=== PATIENT | female | born 1940 | race Caucasian/White ===

== ENCOUNTER 2019-07-10 10:18 | Outpatient (CLI) | payer OTHER, MEDICARE ==
[2019-07-10] MEDS ORDERED: [UNRECOGNIZED DRUG - REMARK] (11:13)
[2019-07-10 11:41] LABS: BASOPHILS # (AUTO) 0.05 x10^3/uL (0-0.1); BASOPHILS % (AUTO) 1 % (0-1); EOSINOPHILS # (AUTO) 0.19 x10^3/uL (0-0.4); EOSINOPHILS % (AUTO) 2 % (1-7); LYMPHOCYTES # (AUTO) 1.78 x10^3/uL (1-3.4); LYMPHOCYTES % (AUTO) 20 % (22-44); MD NO; MEAN CORPUSCULAR HEMOGLOBIN 29.5 pg (27.0-34.8); MEAN CORPUSCULAR HGB CONC 32.6 g/dL (32.4-35.8); MEAN CORPUSCULAR VOLUME 90.5 fL (80-100); MEAN PLATELET VOLUME 8.4 fL (7.4-10.4); MONOCYTES # (AUTO) 0.61 x10^3/uL (0.2-0.8); MONOCYTES % (AUTO) 7 % (2-9); NEUTROPHILS # (AUTO) 6.12 x10^3/uL (1.8-6.8); NEUTROPHILS % (AUTO) 70 % (42-75); PLATELET COUNT 300 x10^3/uL (130-400); RED CELL DISTRIBUTION WIDTH 19.3 % (9.6-15.2)
[2019-07-10 11:48] LABS: INTERNATIONAL NORMALIZED RATIO 0.94 (0.93-1.1); PROTHROMBIN TIME 9.9 Seconds (9.6-11.5)
[2019-07-10 11:52] LABS: ALBUMIN 3.6 g/dL (3.4-5.0); ANION GAP 4 mmol/L (5-15); CALCIUM 9.2 mg/dL (8.5-10.1); CHLORIDE 108 mmol/L (98-107)
[2019-07-10 11:55] LABS: ALANINE AMINOTRANSFERASE 29 U/L (12-78); ALKALINE PHOSPHATASE 68 U/L (45-117); BILIRUBIN,TOTAL 0.5 mg/dL (0.2-1.0); CREATININE 0.92 mg/dL (0.55-1.02); TOTAL PROTEIN 7.8 g/dL (6.4-8.2)
[2019-07-10 13:07] LABS: MICROSCOPIC NOT IND
[2019-07-10 13:12] LABS: CULTURE INDICATED? NO
== END 2019-07-10 23:59 | disposition home or self-care (01) ==
LOC: STAR 10:18
PROVIDERS: ATTEND Neurological Surgery
DX: Z01.818 Encounter for other preprocedural examination (principal); M54.16 Radiculopathy, lumbar region; M43.16 Spondylolisthesis, lumbar region; M54.5 Low back pain; Z88.6 Allergy status to analgesic agent; Z91.040 Latex allergy status; Z87.891 Personal history of nicotine dependence
CPT/HCPCS: 36415; 71046; 80053; 81003; 85025; 85610; 85730; 93005

== ENCOUNTER 2019-07-24 05:35 | Inpatient (IN) | payer OTHER, MEDICARE ==
[~2019-07-24] VITALS: Ht 172.7 cm; Wt 101.7 kg
[~2019-07-24 05:35] MED LIST: [UNRECOGNIZED DRUG - REMARK]
[2019-07-24] MEDS ORDERED: HEPARIN 1,000 UNITS/ML, 30ML ONE (06:03)
[2019-07-24] MEDS ORDERED: EPINEPHRINE 1 MG/ML, 1ML ONE (06:03)
[2019-07-24] MEDS ORDERED: THROMBIN (RECOMBINANT) 5,000 UNIT VIAL TP ONE (06:03)
[2019-07-24] MEDS ORDERED: BUPIVACAINE/PF 0.5% ONE (06:03)
[2019-07-24] MEDS ORDERED: BACITRACIN 50,000 UNIT ONE (06:04)
[2019-07-24] MEDS ORDERED: VANCOMYCIN 1,000 MG ONE (06:05)
[2019-07-24] MEDS ORDERED: LACTATED RINGERS 1,000 ML IV SCH (06:21)
[2019-07-24] MEDS ORDERED: carvedilol PO (06:25)
[2019-07-24] MEDS ORDERED: CLOP75TA PO (06:25)
[2019-07-24] MEDS ORDERED: PREG100C PO (06:25)
[2019-07-24] MEDS ORDERED: METF500T17 PO (06:25)
[2019-07-24] MEDS ORDERED: ATOR20TA37 PO (06:25)
[2019-07-24] MEDS ORDERED: TRAM50TA2 PO (06:25)
[2019-07-24] MEDS ORDERED: LIDOCAINE-MPF 1%, 2ML INFIL ONE (06:30)
[2019-07-24] MEDS ORDERED: FENTANYL PF 250 MCG/5ML ONE (06:53)
[2019-07-24] MEDS ORDERED: METOPROLOL 1 MG/ML, 5ML ONE (07:04)
[2019-07-24] MEDS ORDERED: ACETAMINOPHEN 325 MG TABLET PO PRN (08:30)
[2019-07-24] MEDS ORDERED: HYDROmorphone 2 MG/ML, 1ML IVPush PRN ×2 (08:30→11:00)
[2019-07-24] MEDS ORDERED: ALBUTEROL SULFATE 2.5 MG/3 ML NPPB PRN (08:30)
[2019-07-24] MEDS ORDERED: FENTANYL PF 100 MCG/2ML IV PRN (08:30)
[2019-07-24] MEDS ORDERED: hydrALAzine 20 MG/ML, 1ML IV PRN (08:30)
[2019-07-24] MEDS ORDERED: OXYcodone 5 MG/5 ML ORAL.SOL UDC PO PRN (08:30)
[2019-07-24] MEDS ORDERED: LABETALOL 5MG/ML, 20ML IV PRN (08:30)
[2019-07-24] MEDS ORDERED: PROMETHAZINE 25 MG/ML, 1ML IV PRN (08:30)
[2019-07-24] MEDS ORDERED: ROCURONIUM 10MG/ML,5ML ONE (08:32)
[2019-07-24] MEDS ORDERED: CEFAZOLIN 1,000 MG ONE (08:32)
[2019-07-24] MEDS ORDERED: NEOSTIGMINE 1 MG/ML, 10ML ONE (08:32)
[2019-07-24] MEDS ORDERED: DEXAMETHASONE 4 MG/ML, 1ML ONE (08:32)
[2019-07-24] MEDS ORDERED: SUGAMMADEX 200 MG/2 ML IVPush ONE (08:32)
[2019-07-24] MEDS ORDERED: PROPOFOL 10 MG/ML, 20ML ONE (08:32)
[2019-07-24] MEDS ORDERED: ONDANSETRON 2MG/ML, 2ML ONE (08:32)
[2019-07-24] MEDS ORDERED: GLYCOPYRROLATE 0.2MG/1ML, 5ML ONE (08:32)
[2019-07-24] MEDS ORDERED: SUCCINYLCHOLINE 20 MG/ML, 10ML ONE (08:32)
[2019-07-24] MEDS ORDERED: FENTANYL PF 100 MCG/2ML ONE (09:23)
[2019-07-24] MEDS ORDERED: OXYcodone 5 MG/5 ML ORAL.SOL UDC ONE (09:23)
[2019-07-24] MEDS ORDERED: METHOCARBAMOL 1000MG/10 ML IV ONE (09:30)
[2019-07-24] MEDS ORDERED: METHOCARBAMOL 1,000 MG in DEXTROSE 5% 100 ML IV ONE (10:00)
[2019-07-24] MEDS ORDERED: DIPHENHYDRAMINE 50 MG/ML, 1ML IVPush PRN (11:00)
[2019-07-24] MEDS ORDERED: BISACODYL 10 MG SUPP PR PRN (11:00)
[2019-07-24] MEDS ORDERED: HYDROcodone/APAP 10/325 MG TABLET PO PRN (11:00)
[2019-07-24] MEDS ORDERED: MAGNESIUM HYDROXIDE 8%, 30ML UDC PO PRN (11:00)
[2019-07-24] MEDS ORDERED: PROMETHAZINE 25 MG/ML, 1ML IM PRN (11:00)
[2019-07-24] MEDS ORDERED: LORazepam 1MG TABLET PO PRN (11:00)
[2019-07-24] MEDS ORDERED: ONDANSETRON 2MG/ML, 2ML IV PRN (11:00)
[2019-07-24] MEDS: PREGABALIN 100 MG CAPSULE PO SCH ×3 (11:47→20:45)
[2019-07-24] MEDS: NS + 20MEQ KCL 1,000 ML IV SCH (12:13)
[2019-07-24 14:00] VITALS: BP 120/67
[2019-07-24] MEDS: CEFAZOLIN PMX 1GM/50ML 50 ML IVPB SCH (16:45)
[2019-07-24] MEDS: metFORMIN 500 MG TABLET PO SCH (16:45)
[2019-07-24] MEDS: CARVEDILOL 6.25 MG TABLET PO SCH (16:46)
[2019-07-24] MEDS: METHOCARBAMOL 750 MG TABLET PO SCH (16:47)
[2019-07-24] MEDS: HYDROcodone/APAP 5/325 TABLET PO PRN (17:06)
[2019-07-24] MEDS: INSULIN REGULAR 100 UNITS/ML, 3ML VIAL SQ-INSULIN SCH ×3 (18:31→23:23)
[2019-07-24 19:06] VITALS: BP 112/67
[2019-07-24] MEDS: ATORVASTATIN 80 MG TABLET PO SCH (20:46)
[2019-07-24] MEDS ORDERED: ZOLPIDEM 5MG TABLET PO PRN (21:00)
[2019-07-25] MEDS: CEFAZOLIN PMX 1GM/50ML 50 ML IVPB SCH ×2 (00:05→20:30)
[2019-07-25 01:29] VITALS: BP 122/78
[2019-07-25] MEDS: METHOCARBAMOL 750 MG TABLET PO SCH ×3 (02:00→17:28)
[2019-07-25] MEDS: NS + 20MEQ KCL 1,000 ML IV SCH ×2 (02:42→23:14)
[2019-07-25] MEDS: PREGABALIN 100 MG CAPSULE PO SCH ×4 (06:00→21:00)
[2019-07-25] MEDS: CARVEDILOL 6.25 MG TABLET PO SCH ×2 (06:00→17:29)
[2019-07-25] MEDS ORDERED: BUPIVACAINE/PF 0.5% ONE (06:11)
[2019-07-25] MEDS ORDERED: EPINEPHRINE 1 MG/ML, 1ML ONE (06:12)
[2019-07-25] MEDS ORDERED: BACITRACIN 50,000 UNIT ONE (06:12)
[2019-07-25] MEDS ORDERED: VANCOMYCIN 1,000 MG ONE (06:12)
[2019-07-25 07:33] VITALS: BP 106/54
[2019-07-25] MEDS: metFORMIN 500 MG TABLET PO SCH ×2 (08:00→17:28)
[2019-07-25] MEDS: SENNA/DOCUSATE TABLET PO SCH (09:00)
[2019-07-25] MEDS: INSULIN REGULAR 100 UNITS/ML, 3ML VIAL SQ-INSULIN SCH ×4 (09:17→21:00)
[2019-07-25] MEDS ORDERED: FENTANYL PF 250 MCG/5ML ONE ×2 (09:46→13:56)
[2019-07-25] MEDS ORDERED: ROCURONIUM 10MG/ML,5ML ONE (09:48)
[2019-07-25] MEDS ORDERED: GLYCOPYRROLATE 0.2MG/1ML, 5ML ONE (09:48)
[2019-07-25] MEDS ORDERED: DEXAMETHASONE 4 MG/ML, 1ML ONE (09:48)
[2019-07-25] MEDS ORDERED: ONDANSETRON 2MG/ML, 2ML ONE (09:48)
[2019-07-25] MEDS ORDERED: PROPOFOL 10 MG/ML, 20ML ONE (09:48)
[2019-07-25] MEDS ORDERED: CEFAZOLIN 1,000 MG ONE (09:48)
[2019-07-25] MEDS ORDERED: NEOSTIGMINE 1 MG/ML, 10ML ONE (09:48)
[2019-07-25 10:21] VITALS: BP 111/66
[2019-07-25] MEDS ORDERED: GABAPENTIN 300 MG CAPSULE PO ONE (11:30)
[2019-07-25] MEDS ORDERED: ACETAMINOPHEN 500 MG TABLET PO ONE (11:30)
[2019-07-25] MEDS ORDERED: LABETALOL 5MG/ML, 20ML IV PRN (12:30)
[2019-07-25] MEDS ORDERED: DIAZEPAM 5 MG/ML, 2ML IVPush PRN (12:30)
[2019-07-25] MEDS ORDERED: OXYcodone 5 MG/5 ML ORAL.SOL UDC PO PRN (12:30)
[2019-07-25] MEDS ORDERED: MEPERIDINE/PF 25MG/ML,1ML IVPush PRN (12:30)
[2019-07-25] MEDS ORDERED: FENTANYL PF 100 MCG/2ML IV PRN (12:30)
[2019-07-25] MEDS ORDERED: hydrALAzine 20 MG/ML, 1ML IV PRN (12:30)
[2019-07-25] MEDS ORDERED: PROMETHAZINE 25 MG/ML, 1ML IV PRN (12:30)
[2019-07-25] MEDS ORDERED: HALOPERIDOL 5 MG/ML IV PRN (12:30)
[2019-07-25] MEDS ORDERED: HYDROmorphone 2 MG/ML, 1ML IVPush PRN (12:30)
[2019-07-25] MEDS ORDERED: THROMBIN (RECOMBINANT) 5,000 UNIT VIAL TP ONE (13:07)
[2019-07-25 16:26] VITALS: BP 121/62
[2019-07-25] MEDS ORDERED: DIPHENHYDRAMINE 25 MG CAPSULE PO PRN (17:00)
[2019-07-25] MEDS ORDERED: HYDROmorphone 2 MG/ML, 1ML IM PRN (17:00)
[2019-07-25] MEDS ORDERED: HYDROmorphone 2MG TABLET PO PRN (17:00)
[2019-07-25] MEDS ORDERED: DIPHENHYDRAMINE 50 MG/ML, 1ML IM PRN (17:00)
[2019-07-25 18:33] VITALS: BP 119/73
[2019-07-25] MEDS: ATORVASTATIN 80 MG TABLET PO SCH (21:00)
[2019-07-25 23:47] VITALS: BP 103/54
[2019-07-26] MEDS: HYDROcodone/APAP 5/325 TABLET PO PRN (02:08)
[2019-07-26] MEDS: METHOCARBAMOL 750 MG TABLET PO SCH ×2 (02:08→10:27)
[2019-07-26 03:14] VITALS: BP 107/68
[2019-07-26] MEDS: CARVEDILOL 6.25 MG TABLET PO SCH (05:17)
[2019-07-26] MEDS: PREGABALIN 100 MG CAPSULE PO SCH ×2 (05:17→11:10)
[2019-07-26] MEDS: CEFAZOLIN PMX 1GM/50ML 50 ML IVPB SCH (05:17)
[2019-07-26 05:39] LABS: BASOPHILS # (AUTO) 0.03 x10^3/uL (0-0.1); BASOPHILS % (AUTO) 0 % (0-1); EOSINOPHILS # (AUTO) 0.14 x10^3/uL (0-0.4); EOSINOPHILS % (AUTO) 1 % (1-7); LYMPHOCYTES # (AUTO) 1.29 x10^3/uL (1-3.4); LYMPHOCYTES % (AUTO) 11 % (22-44); MD NO; MEAN CORPUSCULAR HEMOGLOBIN 30.1 pg (27.0-34.8); MEAN CORPUSCULAR HGB CONC 32.3 g/dL (32.4-35.8); MEAN CORPUSCULAR VOLUME 93.3 fL (80-100); MEAN PLATELET VOLUME 9.2 fL (7.4-10.4); MONOCYTES # (AUTO) 0.99 x10^3/uL (0.2-0.8); MONOCYTES % (AUTO) 9 % (2-9); NEUTROPHILS # (AUTO) 9.11 x10^3/uL (1.8-6.8); NEUTROPHILS % (AUTO) 79 % (42-75); PLATELET COUNT 230 x10^3/uL (130-400); RED BLOOD COUNT 3.15 x10^6/uL (3.82-5.3); RED CELL DISTRIBUTION WIDTH 19.3 % (9.6-15.2)
[2019-07-26 05:42] LABS: ANION GAP 7 mmol/L (5-15); CALCIUM 8.8 mg/dL (8.5-10.1); CHLORIDE 107 mmol/L (98-107); CREATININE 0.73 mg/dL (0.55-1.02)
[2019-07-26] MEDS ORDERED: ENOXAPARIN 30 MG/0.3 ML SQ SCH (06:00)
[2019-07-26] MEDS: INSULIN REGULAR 100 UNITS/ML, 3ML VIAL SQ-INSULIN SCH ×2 (07:00→11:00)
[2019-07-26] MEDS: metFORMIN 500 MG TABLET PO SCH (08:06)
[2019-07-26] MEDS: SENNA/DOCUSATE TABLET PO SCH (08:06)
[2019-07-26 08:33] VITALS: BP 113/72
[2019-07-26] MEDS: NS + 20MEQ KCL 1,000 ML IV SCH (09:30)
[2019-07-26 12:06] VITALS: BP 104/69
[2019-07-26 12:07] VITALS: BP 136/78
[2019-07-26] MEDS ORDERED: HYDR-3240 PO (12:49)
[2019-07-26] MEDS ORDERED: METH750T87 PO (12:50)
== END 2019-07-26 13:20 | disposition home health service (06) | DRG 455 ==
LOC: ORIP 05:35 → 4NE 10:39
PROVIDERS: ADMIT Neurological Surgery; ATTEND Neurological Surgery
PROC: 0SG30A0 Fusion of Lumbosacral Joint with Interbody Fusion Device, Anterior Approach, Anterior Column, Open Approach (ICD-10-PCS; 2019-07-24)
PROC: 0SB40ZZ Excision of Lumbosacral Disc, Open Approach (ICD-10-PCS; principal; 2019-07-24 07:00)
PROC: 0SG3071 Fusion of Lumbosacral Joint with Autologous Tissue Substitute, Posterior Approach, Posterior Column, Open Approach (ICD-10-PCS; 2019-07-25)
PROC: 4A11X4G Monitoring of Peripheral Nervous Electrical Activity, Intraoperative, External Approach (ICD-10-PCS; 2019-07-25)
DX: M48.07 Spinal stenosis, lumbosacral region (principal); M43.17 Spondylolisthesis, lumbosacral region; M47.27 Other spondylosis with radiculopathy, lumbosacral region; M51.16 Intervertebral disc disorders with radiculopathy, lumbar region; I25.10 Atherosclerotic heart disease of native coronary artery without angina pectoris; E78.5 Hyperlipidemia, unspecified; E11.9 Type 2 diabetes mellitus without complications; E66.9 Obesity, unspecified; G89.29 Other chronic pain; K21.9 Gastro-esophageal reflux disease without esophagitis; M19.90 Unspecified osteoarthritis, unspecified site; Z96.651 Presence of right artificial knee joint; Z95.5 Presence of coronary angioplasty implant and graft; Z68.34 Body mass index [BMI] 34.0-34.9, adult; Z79.84 Long term (current) use of oral hypoglycemic drugs
CPT/HCPCS: 36415; 72100; 74018; S0020; 72131; 80048; 82962; 85025; C1713; C1729; C1776; G0378; J0171; J0690; J1100; J1170; J1644; J1650; J1815; J2405; J2704; J2710; J3010; J3370; J3480; A4648; C1763; J0330; J2800; J7120